=== PATIENT | female | born 1990 | race African-American/Black ===

== ENCOUNTER 2020-03-14 14:41 | Emergency (ER) | payer OTHER ==
[~2020-03-14] VITALS: Ht 175.3 cm; Wt 104.5 kg
[2020-03-14 14:45] VITALS: BP 114/57
== END 2020-03-14 15:40 | disposition home or self-care (01) ==
LOC: EMS 14:43
DX: Z20.828 Contact with and (suspected) exposure to other viral communicable diseases (principal)
CPT/HCPCS: 87635